=== PATIENT | male | born 1980 | race Caucasian/White ===

== ENCOUNTER 2019-01-29 13:14 | Inpatient (IN) ==
[2019-01-29] MEDS ORDERED: Albuterol 2.5 MG/3 ML NEBULIZER IH PRN (13:31)
[2019-01-29] MEDS ORDERED: Albuterol 2.5 MG/3 ML NEBULIZER ONE (13:40)
[2019-01-29] MEDS ORDERED: Ringers Solution, Lactated 1,000 ML IVC SCH ×2 (13:45→19:42)
[2019-01-29] MEDS ORDERED: *HR* Midazolam HCl 2 MG/2 ML VIAL ONE (13:54)
[2019-01-29] MEDS ORDERED: *HR* Succinylcholine 200 MG/10 ML VIAL IVP ONE ×2 (13:54→13:58)
[2019-01-29] MEDS ORDERED: *HR* FentaNYL (PF) 100 MCG/2 ML VIAL ONE ×2 (13:54→14:59)
[2019-01-29] MEDS ORDERED: *HR* Propofol 200 MG/20 ML VIAL IVP ONE (13:54)
[2019-01-29] MEDS ORDERED: Ondansetron 4 MG/2 ML VIAL ONE (13:54)
[2019-01-29] MEDS ORDERED: Famotidine 20 MG/2 ML VIAL IVP ONE (14:23)
[2019-01-29] MEDS ORDERED: Acetaminophen IV 1,000 MG/100 ML INFUS..BTL IVPB ONE (14:24)
[2019-01-29] MEDS ORDERED: Pregabalin 75 MG CAPSULE PO ONE (14:24)
[2019-01-29] MEDS ORDERED: Ethanol\\Acetic Acid\\Na Ace\\Ben 1,000 ML IRRIG.SOLN IR ONE ×2 (14:42→16:36)
[2019-01-29] MEDS ORDERED: *HR* LORazepam 1 MG TABLET ONE (14:56)
[2019-01-29] MEDS ORDERED: *HR* PHENYLEPHRINE 1,000 MCG/10 ML SYRINGE IVP ONE ×2 (15:40→15:51)
[2019-01-29] MEDS ORDERED: Tranexamic Acid 1,000 MG/10 ML VIAL ONE (15:43)
[2019-01-29] MEDS ORDERED: EPHEDrine 50 MG/ML VIAL ONE (15:43)
[2019-01-29] MEDS ORDERED: *HR* Vasopressin 20 UNIT/ML VIAL ONE (15:53)
[2019-01-29] MEDS ORDERED: *HR* Phenylephrine 10 MG/ML VIAL ONE (15:53)
[2019-01-29] MEDS ORDERED: Lidocaine -MPF 2% 2 ML VIAL ONE (16:00)
[2019-01-29] MEDS ORDERED: Dexamethasone 4 MG/ML VIAL ONE (16:04)
[2019-01-29] MEDS ORDERED: *HR* Promethazine 25 MG/ML VIAL IVP PRN ×2 (17:19→19:42)
[2019-01-29] MEDS ORDERED: Ondansetron 4 MG/2 ML VIAL IVP ONE (17:19)
[2019-01-29] MEDS ORDERED: *HR* HYDROmorphone (PF) 1 MG/ML SYRINGE IVP PRN (17:19)
[2019-01-29] MEDS ORDERED: *HR* OxyCODONE Immed Rel 5 MG TABLET PO PRN (17:19)
[2019-01-29 18:22] LABS: Hematocrit 30.8 % (37.5-50.1); Hemoglobin 10.9 g/dL (12.9-16.9)
[2019-01-29] MEDS ORDERED: Naloxone 0.4 MG/ML INJ IVP PRN (19:42)
[2019-01-29] MEDS ORDERED: Temazepam 15 MG CAPSULE PO PRN (19:42)
[2019-01-29] MEDS ORDERED: MOM Conc 10 ML UD.LIQ PO PRN (19:42)
[2019-01-29] MEDS ORDERED: traMADol 50 MG TABLET PO PRN (19:42)
[2019-01-29] MEDS ORDERED: Sennosides 8.6 MG TABLET PO PRN (19:42)
[2019-01-29] MEDS ORDERED: Ondansetron 4 MG/2 ML VIAL IVP PRN (19:42)
[2019-01-29] MEDS: Baclofen 10 MG TABLET PO SCH (21:17)
[2019-01-29] MEDS: Ascorbic Acid 500 MG TABLET PO SCH (21:17)
[2019-01-29] MEDS: Gabapentin 400 MG CAPSULE PO SCH (21:17)
[2019-01-30 05:49] LABS: Hematocrit 27.5 % (37.5-50.1); Immature Granulocytes % 0.5 % (0-4); Lymphocytes # 0.5 K/mcL (0.6-4.6); Lymphocytes % 4.5 %; Mean Corpuscular HGB Conc 33.1 g/dL (31.6-35.5); Mean Corpuscular Hemoglobin 30.2 pg (28.0-33.3); Mean Corpuscular Volume 91.4 fL (83.0-100.0); Monocytes # 0.2 K/mcL (0.0-1.3); Monocytes % 1.5 %; Neutrophils # 10.4 K/mcL (1.6-8.9); Platelet Count 142 K/mcL (140-400); Red Blood Count 3.01 M/mcL (4.19-5.50); Segmented Neutrophils % 93.5 %; White Blood Count 11.1 K/mcL (4.3-11.1)
[2019-01-30 05:54] LABS: Hemoglobin 9.1 g/dL (12.9-16.9)
[2019-01-30 06:06] LABS: BUN/Creatinine Ratio 21 (6-26); Blood Urea Nitrogen 15 mg/dL (6-20); Calcium 8.8 mg/dL (8.6-10.3); Carbon Dioxide 25 mEq/L (23-29); Chloride 103 mEq/L (98-107); Glucose 166 mg/dL (70-105); Osmolality,Calculated 285 (280-300); Potassium 4.3 mEq/L (3.5-5.1); Sodium 135 mEq/L (136-145); eGFR For African Americans > 60 (> 60); eGFR For Non-African Americans > 60 (> 60)
[2019-01-30] MEDS: Gabapentin 400 MG CAPSULE PO SCH ×3 (08:50→20:07)
[2019-01-30] MEDS: Ascorbic Acid 500 MG TABLET PO SCH ×2 (08:51→16:19)
[2019-01-30] MEDS: Baclofen 10 MG TABLET PO SCH ×3 (08:51→20:07)
[2019-01-30] MEDS: *HR* OxyCODONE Immed Rel 5 MG TABLET PO PRN ×3 (08:51→21:56)
[2019-01-30] MEDS: Multivit/Ca/Min/Fe/FA 1 TAB TABLET PO SCH (08:51)
[2019-01-30] MEDS: HYDROcodone BIT/Homatropine 5 MG TABLET PO PRN ×2 (11:03→20:19)
[2019-01-30] MEDS: Nicotine 21 MG PATCH.TD24 TD SCH (16:19)
[2019-01-31] MEDS: HYDROcodone BIT/Homatropine 5 MG TABLET PO PRN (00:33)
[2019-01-31 01:42] LABS: Basophils % 0.1 %; Hemoglobin 8.9 g/dL (12.9-16.9); Immature Granulocytes % 1.1 % (0-4); Immature Platelets 5.7 % (1.1-6.1); Lymphocytes # 1.5 K/mcL (0.6-4.6); Lymphocytes % 12.3 %; Mean Corpuscular HGB Conc 34.2 g/dL (31.6-35.5); Mean Corpuscular Hemoglobin 30.9 pg (28.0-33.3); Mean Corpuscular Volume 90.3 fL (83.0-100.0); Mean Platelet Volume 10.9 fL (9.4-12.4); Monocytes # 1.6 K/mcL (0.0-1.3); Monocytes % 12.9 %; Neutrophils # 9.1 K/mcL (1.6-8.9); Platelet Count 125 K/mcL (140-400); Red Blood Count 2.88 M/mcL (4.19-5.50); Red Cell Distribution Width 13.2 % (11.5-14.5); Segmented Neutrophils % 73.6 %; White Blood Count 12.3 K/mcL (4.3-11.1)
[2019-01-31 01:59] LABS: BUN/Creatinine Ratio 16 (6-26); Blood Urea Nitrogen 14 mg/dL (6-20); Calcium 8.5 mg/dL (8.6-10.3); Carbon Dioxide 22 mEq/L (23-29); Chloride 107 mEq/L (98-107); Glucose 110 mg/dL (70-105); Osmolality,Calculated 287 (280-300); Potassium 4.1 mEq/L (3.5-5.1); Sodium 138 mEq/L (136-145); eGFR For African Americans > 60 (> 60); eGFR For Non-African Americans > 60 (> 60)
[2019-01-31] MEDS ORDERED: Acetaminophen IV 1,000 MG/100 ML INFUS..BTL IVPB PRN (02:31)
[2019-01-31] MEDS ORDERED: Ketorolac 30 MG/ML VIAL IVP PRN (02:36)
[2019-01-31 08:44] VITALS: BP 117/66
[2019-01-31] MEDS: Baclofen 10 MG TABLET PO SCH (09:15)
[2019-01-31] MEDS: Ascorbic Acid 500 MG TABLET PO SCH (09:15)
[2019-01-31] MEDS: Multivit/Ca/Min/Fe/FA 1 TAB TABLET PO SCH (09:16)
[2019-01-31] MEDS: Gabapentin 400 MG CAPSULE PO SCH (09:16)
[2019-01-31] MEDS: Nicotine 21 MG PATCH.TD24 TD SCH (09:17)
[2019-01-31] MEDS: *HR* OxyCODONE Immed Rel 5 MG TABLET PO PRN (12:03)
[2019-01-31] MEDS ORDERED: Aminoglycoside Consult 1 EACH MC ONE (12:14)
== END 2019-01-31 12:15 | disposition home health service (06) | DRG 467 ==
LOC: SAMDAY 13:14 → 3NENU 19:16
PROVIDERS: ADMIT Orthopaedic Surgery; ATTEND Orthopaedic Surgery